=== PATIENT | female | born 1975 | race Caucasian/White ===

== ENCOUNTER 2016-07-19 23:16 | Emergency (ER) | payer OTHER ==
[~2016-07-19] VITALS: Ht 175.3 cm; Wt 99.8 kg
[2016-07-19] MEDS ORDERED: CARVEDILOL25 MG PO (23:22)
[2016-07-19] MEDS ORDERED: ASPIR 8181 MG PO (23:22)
[2016-07-19] MEDS ORDERED: PLAVIX 75 MG TA75 M1 PO (23:22)
[2016-07-19] MEDS ORDERED: ZOCOR80 MG PO (23:23)
[2016-07-19] MEDS ORDERED: HUMALOG100 UNIT/1 SUBQ (23:23)
[2016-07-19] MEDS ORDERED: TRESIBA FL100 UNIT/1 SQ (23:24)
[2016-07-19 23:34] LABS: URINE BILIRUBIN NEGATIVE (Negative); URINE BLOOD NEGATIVE (Negative); URINE COLOR YELLOW; URINE GLUCOSE-RANDOM* NEGATIVE (Negative); URINE KETONES NEGATIVE (Negative); URINE NITRITE POSITIVE (Negative); URINE PROTEIN (DIPSTICK) NEGATIVE (Negative); URINE SPECIFIC GRAVITY 1.025 (1.003-1.035); URINE UROBILINOGEN 0.2 E.U./dl (0.2-1.0)
[2016-07-19 23:52] LABS: SQUAMOUS 0-3 Few /LPF (0-3)
[2016-07-19 23:53] LABS: BACTERIA >30 Many /HPF (None Seen); CASTS None Seen /LPF (None Seen); CRYSTALS None Seen /LPF (None Seen); URINE RBC 0-2 Rare /HPF (0-2)
[2016-07-19 23:56] VITALS: BP 140/88
[2016-07-20] MEDS ORDERED: PHENAZOPYRIDIN200 M2 PO (00:33)
[2016-07-20] MEDS ORDERED: BACTRIM DS TAB1 EACH PO (00:33)
[2016-07-20] MEDS ORDERED: FLAGYL500 MG PO (00:33)
[2016-07-23 19:12] LABS: CHLAMYDIA TRACHOMATIS-PCR Negative (Negative); NEISSERIA GONORRHEA-PCR Negative (Negative)
== END 2016-07-20 00:40 | disposition home or self-care (01) ==
LOC: ER 23:16
PROVIDERS: Physician Assistant
DX: N76.0 Acute vaginitis (principal); B95.8 Unspecified staphylococcus as the cause of diseases classified elsewhere; N39.0 Urinary tract infection, site not specified; I50.9 Heart failure, unspecified; F17.210 Nicotine dependence, cigarettes, uncomplicated; E11.9 Type 2 diabetes mellitus without complications; I25.2 Old myocardial infarction; Z88.6 Allergy status to analgesic agent